=== PATIENT | female | born 1930 | race Caucasian/White ===

== ENCOUNTER → 2018-10-21 | Outpatient (CLI) | payer MEDICARE, OTHER ==
--- NOTE | 2018-10-21 12:08 | RADIOLOGY REPORT (SQ) ---
EXAM DESCRIPTION: VENOUS UNILATERAL LOWER COMPLETED DATE/TIME: 10/21/2018 11:59 am REASON FOR STUDY: LLE PAIN M79.605 PAIN IN LEFT LEG COMPARISON: None. TECHNIQUE: Dynamic and static singh scale and color images acquired of the left leg venous system. Se lected spectral images acquired with additional compression and augmentation maneuvers. The contralat eral common femoral vein and saphenofemoral junction were also imaged. Images stored on PACS. LIMITATIONS: None. FINDINGS: COMMON FEMORAL: Normal phasicity, compression and augmentation. No visualized echogenic ma terial on singh scale. No defects on color images. FEMORAL: Normal compression and augmentation. No visualized echogenic material on singh scale. No defe cts on color images. POPLITEAL: Normal compression, augmentation. No visualized echogenic material on singh scale. No defec ts on color images. CALF VESSELS: Normal compression, augmentation. No visualized echogenic material on singh scale. No de fects on color images. GSV and SSV: Normal compression, augmentation. No visualized echogenic material on singh scale. No def ects on color images. ANY DEEP VENOUS INSUFFICIENCY: Not evaluated. ANY EVIDENCE OF POPLITEAL CYST: No. OTHER: No other significant finding. CONTRALATERAL COMMON FEMORAL VEIN AND SAPHENOFEMORAL JUNCTION: Normal phasicity, compression and augmentation. No visualized echogenic material on singh scale. No de fects on color images. IMPRESSION: NO EVIDENCE DVT OR SVT IN THE LEFT LEG. TECHNICAL DOCUMENTATION: JOB ID: [id number] [employer]- All Rights Reserved Reading location - IP/workstation name: [email or web address]
== END ==
LOC: SP 09:14
PROVIDERS: ATTEND Family Medicine
DX: M79.605 Pain in left leg (principal)
CPT/HCPCS: 93971

== ENCOUNTER 2018-11-21 03:44 | Inpatient (IN) | payer MEDICARE ==
[2018-11-21] MEDS ORDERED: NORMAL SALINE 1000 ML 1,000 ML IV ONE ×2 (03:51→05:00)
--- NOTE | 2018-11-21 04:04 | ER Document Report ---
ED General - General Stated Complaint: FEVER Time Seen by Provider: 11/21/18 03:50 Primary Care Provider: AUGUSTIN JOHNS MD [Primary Care Provider] - Follow up as needed TRAVEL OUTSIDE OF THE [place] IN LAST 30 DAYS: No - HPI Notes: Patient is a 88-year-old female that presents to the emergency department for chief complaint of fever. Patient reports Thursday afternoon she started to feel mild chills. When she woke up tonight she states the chills were worse. She had a fever of 101.3 by EMS. Patient states she has not felt sick recently. She reports some intermittent burning with urination over the last few days. She denies any urinary frequency, cough and congestion. Patient states she does have a history of asthma and use her albuterol inhaler once on Thursday which gave her relief of her wheezing. She denies any nausea, vomiting, abdominal pain and chest pain. Past Medical History: Asthma, diabetes, hypertension Past Surgical History: Reviewed in chart Social History: Denies drugs alcohol and tobacco Family History: Reviewed and noncontributory for presenting illness Allergies: Reviewed, see documented allergy list. REVIEW OF SYSTEMS: CONSTITUTIONAL : fever chills No diaphoresis No recent illness EENT: No vision changes No congestion No sore throat CARDIOVASCULAR: No chest pain No palpitations RESPIRATORY: No shortness of breath No cough No difficulty breathing GASTROINTESTINAL: No abdominal pain No nausea No vomiting No diarrhea GENITOURINARY: dysuria No hematuria No difficulty urinating MUSCULOSKELETAL: No back pain No leg pain No arm pain SKIN: No rashes No lesions LYMPHATIC: No swollen, enlarged glands. NEUROLOGICAL: No lightheadedness No headache No weakness No paresthesias PSYCHIATRIC: No anxiety No depression PHYSICAL EXAMINATION: Vital signs reviewed, nursing noted reviewed. GENERAL: Well-appearing, well-nourished and in no acute distress. HEAD: Atraumatic, normocephalic. EYES: Eyes appear normal, extraocular movements intact, sclera anicteric, conjunctiva are normal. ENT: nares patent, oropharynx clear without exudates. Dry mucous membranes. NECK: Normal range of motion, supple without lymphadenopathy LUNGS: Breath sounds have wheezing to auscultation bilaterally and equal. No rales or rhonchi. HEART: Tachycardic rate and regular rhythm without murmurs ABDOMEN: Soft, nontender, normoactive bowel sounds. No rebound, guarding, or rigidity. No masses appreciated. EXTREMITIES: Nontender, good range of motion, trace pretibial edema NEUROLOGICAL: No focal neurological deficits. Moves all extremities spontaneously Motor and sensory grossly intact on exam. PSYCH: Normal mood, normal affect. SKIN: Warm, Dry, normal turgor, no rashes or lesions noted on exposed skin - Related Data Allergies/Adverse Reactions: erythromycin base [Erythromycin Base] Allergy (Verified 11/21/18 04:13) morphine [Morphine] Allergy (Verified 11/21/18 04:13) nitrofurantoin macrocrystalline [From Macrodantin] Allergy (Verified 11/21/18 04:13) phenytoin sodium [From Dilantin] Allergy (Verified 11/21/18 04:13) phenytoin sodium extended [From Dilantin] Allergy (Verified 11/21/18 04:13) Sulfa (Sulfonamide Antibiotics) Allergy (Verified 11/21/18 04:13) niacin [Niacin] Adverse Reaction (Verified 11/21/18 04:13) Past Medical History - Social History Smoking Status: Never Smoker Family History: Reviewed & Not Pertinent - Past Medical History Cardiac Medical History: Reports: Hx Hypercholesterolemia, Hx Hypertension - MEDS Denies: Hx Heart Attack Pulmonary Medical History: Reports: Hx Asthma - SYMBICORT,SINGULAIR Neurological Medical History: Denies: Hx Cerebrovascular Accident, Hx Seizures Endocrine Medical History: Reports: Hx Diabetes Mellitus Type 2 GI Medical History: Denies: Hx Hepatitis, Hx Hiatal Hernia, Hx Ulcer Musculoskeletal Medical History: Reports Hx Arthritis Infectious Medical History: Denies: Hx Hepatitis Past Surgical History: Reports: Hx Cholecystectomy, Hx Hysterectomy. Denies: Hx Mastectomy, Hx Open Heart Surgery, Hx Pacemaker - Immunizations Hx Diphtheria, Pertussis, Tetanus Vaccination: - unk Physical Exam - Vital signs Vitals: Temp Pulse Resp BP Pulse Ox 98.7 F 126 H 19 159/59 H 97 11/21/18 03:45 11/21/18 03:45 11/21/18 03:45 11/21/18 03:45 11/21/18 03:45 Course - Re-evaluation Re-evalutation: 11/21/18 04:03 Vitals reviewed. Nursing notes reviewed. Patient received 250 mL's normal saline bolus and 650 mg of Tylenol by EMS prior to arrival. She was given another liter bolus of IV fluids in the ED for her persistent tachycardia and fever and concern for sepsis. Patient is otherwise well-appearing, not diaphoretic, alert and conversational. She states she does feel improved since receiving Tylenol by EMS. 11/21/18 05:16 Patient reevaluated and still appears alert and in no acute distress. Her heart rate has minimally improved with IV fluids. She will be ordered a second liter of normal saline. Patient has an elevated lactate of 5.3 consistent with severe sepsis. She has an acute urinary tract infection that was treated with Rocephin. Patient will be admitted to the [facility] for her severe sepsis. Case discussed with Dr. Blackman who accepts admission. Patient in agreement with plan of care. Laboratory 11/21/18 11/21/18 11/21/18 04:00 04:00 04:00 WBC 9.9 RBC 3.74 Hgb 11.6 L Hct 33.6 L MCV 90 MCH 31.1 MCHC 34.6 RDW 12.7 Plt Count 231 Seg Neutrophils % 93.3 H Lymphocytes % 5.8 L Monocytes % 0.5 L Eosinophils % 0.2 Basophils % 0.2 Absolute Neutrophils 9.3 H Absolute Lymphocytes 0.6 Absolute Monocytes 0.1 Absolute Eosinophils 0.0 Absolute Basophils 0.0 PT 13.6 INR 0.99 VBG pH VBG pCO2 VBG HCO3 VBG Base Excess Sodium 138.4 Potassium 3.6 Chloride 105 Carbon Dioxide 19 L Anion Gap 14 BUN 16 Creatinine 0.53 Est GFR ( Amer) > 60 Est GFR (Non-Af Amer) > 60 Glucose 138 H Lactic Acid Calcium 9.0 Total Bilirubin 0.4 Direct Bilirubin 0.2 Neonat Total Bilirubin Not Reportable Neonat Direct Bilirubin Not Reportable Neonat Indirect Bili Not Reportable AST 20 ALT 17 Alkaline Phosphatase 50 Total Protein 5.7 L Albumin 3.5 Urine Color Urine Appearance Urine pH Ur Specific [place] Urine Protein Urine Glucose (UA) Urine Ketones Urine Blood Urine Nitrite Urine Bilirubin Urine Urobilinogen Ur Leukocyte Esterase Urine WBC (Auto) Urine RBC (Auto) Urine Bacteria (Auto) Urine WBC Clumps Urine Ascorbic Acid 11/21/18 11/21/18 11/21/18 04:00 04:00 04:41 WBC RBC Hgb Hct MCV MCH MCHC RDW Plt Count Seg Neutrophils % Lymphocytes % Monocytes % Eosinophils % Basophils % Absolute Neutrophils Absolute Lymphocytes Absolute Monocytes Absolute Eosinophils Absolute Basophils PT INR VBG pH 7.43 H VBG pCO2 36.6 VBG HCO3 23.9 VBG Base Excess -0.1 Sodium Potassium Chloride Carbon Dioxide Anion Gap BUN Creatinine Est GFR ( Amer) Est GFR (Non-Af Amer) Glucose Lactic Acid 5.3 H Calcium Total Bilirubin Direct Bilirubin Neonat Total Bilirubin Neonat Direct Bilirubin Neonat Indirect Bili AST ALT Alkaline Phosphatase Total Protein Albumin Urine Color YELLOW Urine Appearance CLOUDY Urine pH 5.0 Ur Specific [place] 1.014 Urine Protein NEGATIVE Urine Glucose (UA) NEGATIVE Urine Ketones 20 H Urine Blood NEGATIVE Urine Nitrite POSITIVE H Urine Bilirubin NEGATIVE Urine Urobilinogen NEGATIVE Ur Leukocyte Esterase LARGE H Urine WBC (Auto) >182 Urine RBC (Auto) 14 Urine Bacteria (Auto) 3+ Urine WBC Clumps MANY Urine Ascorbic Acid NEGATIVE - Vital Signs Vital signs: Temp Pulse Resp BP Pulse Ox 98 F 126 H 21 H 141/62 H 97 11/21/18 04:31 11/21/18 03:45 11/21/18 04:31 11/21/18 04:31 11/21/18 04:31 - Laboratory Result Diagrams: 11/21/18 04:00 11/21/18 04:00 Laboratory results interpreted by me: 11/21/18 11/21/18 11/21/18 04:00 04:00 04:00 Hgb 11.6 L Hct 33.6 L Seg Neutrophils % 93.3 H Lymphocytes % 5.8 L Monocytes % 0.5 L Absolute Neutrophils 9.3 H VBG pH Carbon Dioxide 19 L Glucose 138 H Lactic Acid 5.3 H Total Protein 5.7 L Urine Ketones Urine Nitrite Ur Leukocyte Esterase 11/21/18 11/21/18 04:00 04:41 Hgb Hct Seg Neutrophils % Lymphocytes % Monocytes % Absolute Neutrophils VBG pH 7.43 H Carbon Dioxide Glucose Lactic Acid Total Protein Urine Ketones 20 H Urine Nitrite POSITIVE H Ur Leukocyte Esterase LARGE H - EKG Interpretation by Me Additional EKG results interpreted by me: 11/21/18 04:19 Interpreted by myself [id number]: Sinus tachycardia with first-degree AV block, rate 111, [place] 224, no STEMI, no ectopy, poor R wave progression Critical Care Note - Critical Care Note Comments: Critical care time 35 exclusive from separate billable procedures for a patient requiring complex medical decision making, and high potential for clinical deterioration. Time spent obtaining history from patient or surrogate, discussions with consultants, development of treatment plan with patient or surrogate, evaluation of patient's response to treatment, examination of patient, ordering and performing treatments and interventions, ordering and review of laboratory studies, re-evaluation of patient's condition, ordering and review of radiographic studies and review of old charts Discharge - Discharge Clinical Impression: Severe sepsis, Acute UTI Condition: Stable Disposition: ADMITTED INPATIENT Admitting Provider: [facility] Admitted: [facility]
[2018-11-21 04:19] LABS: ABSOLUTE LYMPHOCYTES (AUTO) 0.6 10^3/uL (0.5-4.7); ABSOLUTE MONOCYTES (AUTO) 0.1 10^3/uL (0.1-1.4); ABSOLUTE NEUT (AUTO) 9.3 10^3/uL (1.7-8.2); BASOPHILS % (AUTO) 0.2 % (0-2); EOSINOPHILS % (AUTO) 0.2 % (0-6); HEMATOCRIT 33.6 % (36.0-47.0); HEMOGLOBIN 11.6 g/dL (12.0-15.5); LYMPHOCYTES % (AUTO) 5.8 % (13-45); MEAN CORPUSCULAR HEMOGLOBIN 31.1 pg (27.0-33.4); MEAN CORPUSCULAR HGB CONC 34.6 g/dL (32.0-36.0); MEAN CORPUSCULAR VOLUME 90 fl (80-97); MONOCYTES % (AUTO) 0.5 % (3-13); PLATELET COUNT 231 10^3/uL (150-450); RED BLOOD COUNT 3.74 10^6/uL (3.72-5.28); RED CELL DISTRIBUTION WIDTH 12.7 % (11.5-14.0); SEGMENTED NEUTROPHILS % (AUTO) 93.3 % (42-78); TOTAL CELLS COUNTED % (AUTO) 100 %; WHITE BLOOD COUNT 9.9 10^3/uL (4.0-10.5)
[2018-11-21 04:22] LABS: VENOUS BLOOD BASE EXCESS -0.1 mmol/L; VENOUS BLOOD HCO3 23.9 mmol/L (20-32); VENOUS BLOOD PCO2 36.6 mmHg (35-63); VENOUS BLOOD PH 7.43 (7.30-7.42)
[2018-11-21 04:25] LABS: INTERNATIONAL RATION (INR) 0.99; PROTHROMBIN TIME 13.6 SEC (11.4-15.4)
[2018-11-21] MEDS ORDERED: CEFTRIAXONE INJ 1000 MG VIAL IV ONE (04:30)
[2018-11-21 04:37] LABS: ALANINE AMINOTRANSFERASE 17 U/L (9-52); ALBUMIN 3.5 g/dL (3.5-5.0); ALKALINE PHOSPHATASE 50 U/L (38-126); ANION GAP 14 (5-19); ASPARTATE AMINO TRANSFERASE 20 U/L (14-36); BILIRUBIN,DIRECT 0.2 mg/dL (0.0-0.4); BILIRUBIN,TOTAL 0.4 mg/dL (0.2-1.3); BLOOD UREA NITROGEN 16 mg/dL (7-20); CARBON DIOXIDE 19 mmol/L (22-30); CHLORIDE 105 mmol/L (98-107); GLUCOSE 138 mg/dL (75-110); POTASSIUM 3.6 mmol/L (3.6-5.0); SODIUM 138.4 mmol/L (137-145); TOTAL PROTEIN 5.7 g/dL (6.3-8.2)
[2018-11-21 05:10] LABS: APPEARANCE,URINE CLOUDY; BILIRUBIN,URINE NEGATIVE (NEGATIVE); COLOR,URINE YELLOW; GLUCOSE, URINE NEGATIVE (NEGATIVE); KETONES,URINE 20 mg/dL (NEGATIVE); LEUKOCYTE ESTERASE,URINE LARGE (NEGATIVE); NITRITE,URINE POSITIVE (NEGATIVE); PROTEIN,URINE NEGATIVE (NEGATIVE); URINE SPECIFIC GRAVITY 1.014; UROBILINOGEN,URINE NEGATIVE mg/dL (<2.0)
--- NOTE | 2018-11-21 05:29 | RADIOLOGY REPORT (SQ) ---
Chest single view on 11/21/2018 at 4:29 AM CLINICAL INDICATION: Fever COMPARISON: 04/05/2016 FINDINGS: There is mild left basilar atelectasis or scarring. The lungs are otherwise clear. Cardiac, hilar and mediastinal contours are within normal limits. Pulmonary vascularity is within normal limits. IMPRESSION: No acute disease.
[2018-11-21] MEDS ORDERED: TRAMADOL HCL 50 MG TABLET PO PRN (07:34)
[2018-11-21] MEDS ORDERED: GLUCAGON,HUMAN RECOMB 1 MG INJ IM PRN (07:37)
[2018-11-21] MEDS ORDERED: DEXTROSE 50%-WATER 25 GM/50 ML DISP.SYRIN IV PRN ×2 (07:37)
[2018-11-21] MEDS ORDERED: DEXTROSE 40% GEL 15 GM TUBE PO PRN ×2 (07:37)
--- NOTE | 2018-11-21 09:34 | EKG REPORT ---
SEVERITY:- ABNORMAL ECG - SINUS TACHYCARDIA FIRST DEGREE AV BLOCK PROBABLE INFERIOR INFARCT, AGE INDETERMINATE BORDERLINE R WAVE PROGRESSION, ANTERIOR LEADS : Confirmed by: Yayo Tristan MD 21-Nov-2018 09:33:55
[2018-11-21] MEDS: NORMAL SALINE 1000 ML 1,000 ML IV PRN (10:45)
[2018-11-21] MEDS: INSULIN LISPRO 100 UNIT/ML 3 ML VIAL SUBCUT SCH ×5 (12:07→22:05)
--- NOTE | 2018-11-21 12:15 | PDOC H&P ---
History of Present Illness Admission Date/PCP: 11/21/18 05:27 AUGUSTIN JOHNS MD History of Present Illness: DELFIN GUNDERSON is a 88 year old female, she came to the emergency room for evaluation of fever and chills associated with urinary symptoms, dysuria and urgency. She was evaluated in the ER, she was found to have lactic acidosis grossly abnormal urinalysis that suggest UTI, the emergency room physician felt that patient needed to be hospitalized because she met sepsis criteria. She has lactic acidosis there is no evidence of endorgan failure, there is no leukocytosis there is no encephalopathy, the blood pressure is normal, she does not definitely meet the criteria for sepsis but she has UTI, history of type 2 diabetes mellitus Past Medical History Cardiac Medical History: Reports: Hyperlipidema, Hypertension - MEDS Pulmonary Medical History: Reports: Asthma - SYMBICORT,SINGULAIR Endocrine Medical History: Reports: Diabetes Mellitus Type 2 Musculoskeltal Medical History: Reports: Arthritis Past Surgical History Past Surgical History: Reports: Cholecystectomy, Hysterectomy Social History Smoking Status: Never Smoker Frequency of Alcohol Use: None Hx Recreational Drug Use: No Drugs: None Hx Prescription Drug Abuse: No Family History Family History: Reviewed & Not Pertinent Parental Family History Reviewed: Yes Children Family History Reviewed: Yes Sibling(s) Family History Reviewed.: Yes Medication/Allergy Home Medications: Budesonide/Formoterol Fumarate [Symbicort Hfa 160-4.5 Mcg Inhaler 6 gm] 2 puff IH DAILY 04/17/15 Cholecalciferol (Vitamin D3) [Vitamin D] 1,000 unit PO DAILY 04/17/15 Glipizide [Glocotrol 5 Mg Tablet] 5 mg PO BID 04/17/15 Lisinopril 40 mg PO DAILY 04/17/15 Losartan Potassium 100 mg PO DAILY 04/17/15 Metformin HCl [Glucophage] 1,000 mg PO BID 04/17/15 Montelukast Sodium [Singulair 10 mg Tablet] 10 mg PO QHS 04/17/15 Callahan-3/Dha/Epa/Fish Oil [Fish Oil 1,000 mg Softgel] 1 each PO DAILY 04/17/15 Terazosin HCl 1 mg PO DAILY 04/17/15 Torsemide [Demadex 10 mg Tablet] 10 mg PO DAILY 04/17/15 Tramadol HCl 50 mg PO BID PRN 04/17/15 Verapamil HCl [Verapamil ER] 180 mg PO BID 04/17/15 Cyanocobalamin (Vitamin B-12) [Vitamin B12] 2,500 mcg PO DAILY 11/21/18 Magnesium Oxide [Magnesium] 400 mg PO DAILY 11/21/18 Metoprolol Succinate [Toprol Xl] 25 mg PO DAILY 11/21/18 Allergies/Adverse Reactions: erythromycin base [Erythromycin Base] Allergy (Verified 11/21/18 04:13) morphine [Morphine] Allergy (Verified 11/21/18 04:13) nitrofurantoin macrocrystalline [From Macrodantin] Allergy (Verified 11/21/18 04:13) phenytoin sodium [From Dilantin] Allergy (Verified 11/21/18 04:13) phenytoin sodium extended [From Dilantin] Allergy (Verified 11/21/18 04:13) Sulfa (Sulfonamide Antibiotics) Allergy (Verified 11/21/18 04:13) niacin [Niacin] Adverse Reaction (Verified 11/21/18 04:13) Review of Systems Constitutional: PRESENT: chills, fever(s) Eyes: ABSENT: visual disturbances Ears: ABSENT: hearing changes Cardiovascular: ABSENT: chest pain, dyspnea on exertion, edema, orthropnea, palpitations Respiratory: ABSENT: cough, hemoptysis Gastrointestinal: ABSENT: abdominal pain, constipation, diarrhea, hematemesis, hematochezia, nausea, vomiting Genitourinary: PRESENT: dysuria. ABSENT: hematuria Musculoskeletal: ABSENT: joint swelling Integumentary: ABSENT: rash, wounds Neurological: ABSENT: abnormal gait, abnormal speech, confusion, dizziness, focal weakness, syncope Psychiatric: ABSENT: anxiety, depression, homidical ideation, suicidal ideation Endocrine: ABSENT: cold intolerance, heat intolerance, menstrual abnormalities, polydipsia, polyuria Hematologic/Lymphatic: ABSENT: easy bleeding, easy bruising, lymphadenopathy Physical Exam Vital Signs: Temp Pulse Resp BP Pulse Ox 97.8 F 113 H 18 114/45 L 97 11/21/18 11:13 11/21/18 11:13 11/21/18 11:13 11/21/18 11:13 11/21/18 11:13 Intake & Output 11/20/18 11/21/18 11/22/18 06:59 06:59 06:59 Intake Total 1999 Balance 1999 Weight 67.1 kg General appearance: PRESENT: no acute distress, well-developed, well-nourished Head exam: PRESENT: atraumatic, normocephalic Eye exam: PRESENT: conjunctiva pink, EOMI, PERRLA Ear exam: PRESENT: normal external ear exam Mouth exam: PRESENT: moist, tongue midline Neck exam: PRESENT: full ROM Respiratory exam: PRESENT: clear to auscultation palmer Cardiovascular exam: PRESENT: RRR, +S1, +S2 Pulses: PRESENT: normal dorsalis pedis pul, +2 pedal pulses bilateral Vascular exam: PRESENT: normal capillary refill GI/Abdominal exam: PRESENT: normal bowel sounds, soft Rectal exam: PRESENT: deferred Neurological exam: PRESENT: alert, awake, oriented to person, oriented to place, oriented to time, oriented to situation, CN II-XII grossly intact Psychiatric exam: PRESENT: appropriate affect, normal mood Skin exam: PRESENT: dry, intact, warm Results Laboratory Results: 11/21/18 04:00 11/21/18 04:00 11/21/18 11/21/18 11/21/18 04:00 04:00 04:00 WBC 9.9 RBC 3.74 Hgb 11.6 L Hct 33.6 L MCV 90 MCH 31.1 MCHC 34.6 RDW 12.7 Plt Count 231 Seg Neutrophils % 93.3 H Lymphocytes % 5.8 L Monocytes % 0.5 L Eosinophils % 0.2 Basophils % 0.2 Absolute Neutrophils 9.3 H Absolute Lymphocytes 0.6 Absolute Monocytes 0.1 Absolute Eosinophils 0.0 Absolute Basophils 0.0 VBG pH VBG pCO2 VBG HCO3 VBG Base Excess Sodium 138.4 Potassium 3.6 Chloride 105 Carbon Dioxide 19 L Anion Gap 14 BUN 16 Creatinine 0.53 Est GFR ( Amer) > 60 Est GFR (Non-Af Amer) > 60 Glucose 138 H Lactic Acid 5.3 H Calcium 9.0 Total Bilirubin 0.4 AST 20 ALT 17 Alkaline Phosphatase 50 Total Protein 5.7 L Albumin 3.5 Urine Color Urine Appearance Urine pH Ur Specific [place] Urine Protein Urine Glucose (UA) Urine Ketones Urine Blood Urine Nitrite Ur Leukocyte Esterase Urine WBC (Auto) Urine RBC (Auto) 11/21/18 11/21/18 11/21/18 04:00 04:41 08:00 WBC RBC Hgb Hct MCV MCH MCHC RDW Plt Count Seg Neutrophils % Lymphocytes % Monocytes % Eosinophils % Basophils % Absolute Neutrophils Absolute Lymphocytes Absolute Monocytes Absolute Eosinophils Absolute Basophils VBG pH 7.43 H VBG pCO2 36.6 VBG HCO3 23.9 VBG Base Excess -0.1 Sodium Potassium Chloride Carbon Dioxide Anion Gap BUN Creatinine Est GFR ( Amer) Est GFR (Non-Af Amer) Glucose Lactic Acid 3.4 H Calcium Total Bilirubin AST ALT Alkaline Phosphatase Total Protein Albumin Urine Color YELLOW Urine Appearance CLOUDY Urine pH 5.0 Ur Specific [place] 1.014 Urine Protein NEGATIVE Urine Glucose (UA) NEGATIVE Urine Ketones 20 H Urine Blood NEGATIVE Urine Nitrite POSITIVE H Ur Leukocyte Esterase LARGE H Urine WBC (Auto) >182 Urine RBC (Auto) 14 Impressions: Chest X-Ray 11/21/18 03:52 IMPRESSION: No acute disease. Assessment & Plan - Diagnosis (1) Urinary tract infection Qualifiers: Urinary tract infection type: site unspecified Hematuria presence: without hematuria Qualified Code(s): N39.0 - Urinary tract infection, site not specified Is this a current diagnosis for this admission?: Yes Plan: Patient with uncomplicated UTI start antibiotic IV ceftriaxone (2) Lactic acidosis Is this a current diagnosis for this admission?: Yes Plan: She has lactic acidosis, the apparent etiology is not clear
[2018-11-21] MEDS: METOPROLOL SUCCINATE 25 MG TAB.SR.24H PO SCH (12:55)
[2018-11-21] MEDS: MONTELUKAST SODIUM 10 MG TABLET PO SCH ×2 (14:42→22:05)
[2018-11-21] MEDS: GLIPIZIDE 5 MG TABLET PO SCH (17:11)
[2018-11-21] MEDS: VERAPAMIL HCL 180 MG TABLET.SA PO SCH ×2 (17:12→22:05)
[2018-11-21] MEDS: METFORMIN HCL 500 MG TABLET PO SCH (22:06)
[2018-11-22] MEDS: NORMAL SALINE 1000 ML 1,000 ML IV PRN (00:02)
[2018-11-22] MEDS: INSULIN LISPRO 100 UNIT/ML 3 ML VIAL SUBCUT SCH ×4 (09:09→21:54)
[2018-11-22] MEDS: VERAPAMIL HCL 180 MG TABLET.SA PO SCH ×2 (09:52→21:53)
[2018-11-22] MEDS: LOSARTAN POTASSIUM 50 MG TABLET PO SCH (09:52)
[2018-11-22] MEDS: METFORMIN HCL 500 MG TABLET PO SCH ×2 (09:52→18:34)
[2018-11-22] MEDS: CYANOCOBALAMIN (VITAMIN B-12) 1,000 MCG TABLET PO SCH (09:53)
[2018-11-22] MEDS: METOPROLOL SUCCINATE 25 MG TAB.SR.24H PO SCH (09:53)
[2018-11-22] MEDS: GLIPIZIDE 5 MG TABLET PO SCH ×2 (09:53→18:34)
[2018-11-22] MEDS: MAGNESIUM OXIDE 400 MG TABLET PO SCH (09:53)
[2018-11-22] MEDS: CHOLECALCIFEROL (D3) 1,000 UNIT TABLET PO SCH (09:53)
[2018-11-22] MEDS: OMEGA-3 ACID ETHYL ESTERS 1 GM CAPSULE PO SCH (09:54)
[2018-11-22] MEDS: CEFTRIAXONE SODIUM 1,000 MG in DEXTROSE 5%-WATER 50 ML IV SCH (09:54)
[2018-11-22] MEDS: FLUTICASONE/VILANTEROL 200-25 MCG/DOSE IH SCH (09:54)
[2018-11-22] MEDS: DOXAZOSIN MESYLATE 1 MG TABLET PO SCH (09:55)
[2018-11-22] MEDS ORDERED: CEFTRIAXONE 1 GM/D5W RTU 1 GM/50 ML RTUPB IV SCH (10:00)
--- NOTE | 2018-11-22 12:51 | PDOC PROGRESS REPORT ---
Subjective Progress Note for:: 11/22/18 Subjective:: Patient is currently doing well Patient was admitted because of the patient not feeling well and diagnosed with the UTI Patient was put on Rocephin Patient's lactic acid is currently 0.7 Patient's denied any chest pain to than any shortness of the breath Reason For Visit: URINARY TRACT INFECTION Physical Exam Vital Signs: Temp Pulse Resp BP Pulse Ox 98.4 F 86 16 127/49 H 94 11/22/18 07:53 11/22/18 07:53 11/22/18 07:53 11/22/18 07:53 11/22/18 07:53 Intake & Output 11/21/18 11/22/18 11/23/18 06:59 06:59 06:59 Intake Total 1999 2257 50 Output Total 450 Balance 1999 1807 50 Weight 67.1 kg 72.6 kg General appearance: PRESENT: no acute distress, well-developed, well-nourished Head exam: PRESENT: atraumatic, normocephalic Eye exam: PRESENT: conjunctiva pink, EOMI, PERRLA. ABSENT: scleral icterus Ear exam: PRESENT: normal external ear exam Mouth exam: PRESENT: moist, tongue midline Neck exam: PRESENT: full ROM. ABSENT: carotid bruit, JVD, lymphadenopathy, thyromegaly Respiratory exam: PRESENT: clear to auscultation palmer Cardiovascular exam: PRESENT: RRR. ABSENT: diastolic murmur, rubs, systolic murmur Vascular exam: PRESENT: normal capillary refill GI/Abdominal exam: PRESENT: normal bowel sounds, soft. ABSENT: distended, guarding, mass, organolmegaly, rebound, tenderness Rectal exam: PRESENT: deferred Neurological exam: PRESENT: alert, awake, oriented to person, oriented to place, oriented to time, oriented to situation, CN II-XII grossly intact. ABSENT: motor sensory deficit Psychiatric exam: PRESENT: appropriate affect, normal mood. ABSENT: homicidal ideation, suicidal ideation Skin exam: PRESENT: dry, intact, warm. ABSENT: cyanosis, rash Results Laboratory Results: 11/21/18 04:00 11/21/18 04:00 11/22/18 08:56 Lactic Acid 0.7 Impressions: Chest X-Ray 11/21/18 03:52 IMPRESSION: No acute disease. Assessment & Plan - Diagnosis (1) Acute UTI Is this a current diagnosis for this admission?: Yes Plan: Continues to IV antibiotics will wait for the culture and sensitivity (2) Lactic acidosis Is this a current diagnosis for this admission?: Yes Plan: Currently all resolved - Time Time Spent with patient: 15-24 minutes Medications reviewed and adjusted accordingly: Yes Anticipated discharge: Home Within: within 24 hours - Plan Summary Plan Summary: Will repeat the CBC Chem-7 Get the physical therapy evaluations
[2018-11-22] MEDS: MONTELUKAST SODIUM 10 MG TABLET PO SCH (21:53)
[2018-11-23 05:47] LABS: ABSOLUTE EOSINOPHILS # (AUTO) 0.1 10^3/uL (0.0-0.6); ABSOLUTE LYMPHOCYTES (AUTO) 1.6 10^3/uL (0.5-4.7); ABSOLUTE NEUT (AUTO) 8.8 10^3/uL (1.7-8.2); BASOPHILS % (AUTO) 0.4 % (0-2); EOSINOPHILS % (AUTO) 1.2 % (0-6); HEMATOCRIT 28.8 % (36.0-47.0); HEMOGLOBIN 9.9 g/dL (12.0-15.5); LYMPHOCYTES % (AUTO) 14.1 % (13-45); MEAN CORPUSCULAR HEMOGLOBIN 31.1 pg (27.0-33.4); MEAN CORPUSCULAR HGB CONC 34.5 g/dL (32.0-36.0); MEAN CORPUSCULAR VOLUME 90 fl (80-97); MONOCYTES % (AUTO) 8.7 % (3-13); PLATELET COUNT 183 10^3/uL (150-450); RED CELL DISTRIBUTION WIDTH 12.5 % (11.5-14.0); SEGMENTED NEUTROPHILS % (AUTO) 75.6 % (42-78); TOTAL CELLS COUNTED % (AUTO) 100 %; WHITE BLOOD COUNT 11.6 10^3/uL (4.0-10.5)
[2018-11-23 06:11] LABS: BLOOD UREA NITROGEN 11 mg/dL (7-20); CALCIUM 8.2 mg/dL (8.4-10.2); GLUCOSE 156 mg/dL (75-110)
[2018-11-23 06:12] LABS: ANION GAP 9 (5-19); CARBON DIOXIDE 23 mmol/L (22-30); CHLORIDE 106 mmol/L (98-107); POTASSIUM 3.7 mmol/L (3.6-5.0); SODIUM 137.7 mmol/L (137-145)
[2018-11-23] MEDS: INSULIN LISPRO 100 UNIT/ML 3 ML VIAL SUBCUT SCH ×4 (07:59→23:06)
--- NOTE | 2018-11-23 09:11 | PDOC PROGRESS REPORT ---
Subjective Progress Note for:: 11/23/18 Subjective:: Patient is currently doing well Patient was admitted because of the patient not feeling well and diagnosed with the UTI Patient was put on Rocephin Patient's lactic acid is currently 0.7 Patient's denied any chest pain to than any shortness of the breath Reason For Visit: URINARY TRACT INFECTION Physical Exam Vital Signs: Temp Pulse Resp BP Pulse Ox 97.8 F 84 14 140/57 H 94 11/23/18 07:47 11/23/18 07:47 11/23/18 07:47 11/23/18 07:47 11/23/18 07:47 Intake & Output 11/22/18 11/23/18 11/24/18 06:59 06:59 06:59 Intake Total 2257 1725 Output Total 450 1400 Balance 1807 325 Weight 72.6 kg 72.5 kg General appearance: PRESENT: no acute distress, well-developed, well-nourished Head exam: PRESENT: atraumatic, normocephalic Eye exam: PRESENT: conjunctiva pink, EOMI, PERRLA. ABSENT: scleral icterus Ear exam: PRESENT: normal external ear exam Mouth exam: PRESENT: moist, tongue midline Neck exam: PRESENT: full ROM. ABSENT: carotid bruit, JVD, lymphadenopathy, thyromegaly Cardiovascular exam: PRESENT: RRR. ABSENT: diastolic murmur, rubs, systolic m urmur Pulses: PRESENT: normal dorsalis pedis pul, +2 pedal pulses bilateral Vascular exam: PRESENT: normal capillary refill GI/Abdominal exam: PRESENT: normal bowel sounds, soft. ABSENT: distended, guarding, mass, organolmegaly, rebound, tenderness Rectal exam: PRESENT: deferred Neurological exam: PRESENT: alert, awake, oriented to person, oriented to place, oriented to time, oriented to situation, CN II-XII grossly intact. ABSENT: motor sensory deficit Psychiatric exam: PRESENT: appropriate affect, normal mood. ABSENT: homicidal ideation, suicidal ideation Skin exam: PRESENT: dry, intact, warm. ABSENT: cyanosis, rash Results Laboratory Results: 11/23/18 05:07 11/23/18 05:07 11/22/18 11/23/18 11/23/18 08:56 05:07 05:07 WBC 11.6 H RBC 3.20 L Hgb 9.9 L Hct 28.8 L MCV 90 MCH 31.1 MCHC 34.5 RDW 12.5 Plt Count 183 Seg Neutrophils % 75.6 Lymphocytes % 14.1 Monocytes % 8.7 Eosinophils % 1.2 Basophils % 0.4 Absolute Neutrophils 8.8 H Absolute Lymphocytes 1.6 Absolute Monocytes 1.0 Absolute Eosinophils 0.1 Absolute Basophils 0.0 Sodium 137.7 Potassium 3.7 Chloride 106 Carbon Dioxide 23 Anion Gap 9 BUN 11 Creatinine 0.51 L Est GFR ( Amer) > 60 Est GFR (Non-Af Amer) > 60 Glucose 156 H Lactic Acid 0.7 Calcium 8.2 L 11/21/18 04:41 Catheterized Urine Urine Culture - Final Escherichia Coli Impressions: Chest X-Ray 11/21/18 03:52 IMPRESSION: No acute disease. Assessment & Plan - Diagnosis (1) Acute UTI Is this a current diagnosis for this admission?: Yes Plan: Continues to IV antibiotics will wait for the culture and sensitivity (2) Lactic acidosis Is this a current diagnosis for this admission?: Yes Plan: Currently all resolved (3) Hypertension Qualifiers: Hypertension type: essential hypertension Qualified Code(s): I10 - Essential (primary) hypertension Is this a current diagnosis for this admission?: Yes (4) Type 2 diabetes mellitus Qualifiers: Diabetes mellitus care home insulin use: without exterminator termite use Is this a current diagnosis for this admission?: Yes - Time Time Spent with patient: 15-24 minutes Medications reviewed and adjusted accordingly: Yes Anticipated discharge: Home Within: within 24 hours - Plan Summary Plan Summary: On medication
[2018-11-23] MEDS: CHOLECALCIFEROL (D3) 1,000 UNIT TABLET PO SCH (09:28)
[2018-11-23] MEDS: OMEGA-3 ACID ETHYL ESTERS 1 GM CAPSULE PO SCH (09:28)
[2018-11-23] MEDS: LOSARTAN POTASSIUM 50 MG TABLET PO SCH (09:28)
[2018-11-23] MEDS: METOPROLOL SUCCINATE 25 MG TAB.SR.24H PO SCH (09:28)
[2018-11-23] MEDS: GLIPIZIDE 5 MG TABLET PO SCH ×2 (09:28→17:35)
[2018-11-23] MEDS: METFORMIN HCL 500 MG TABLET PO SCH ×2 (09:29→17:35)
[2018-11-23] MEDS: CYANOCOBALAMIN (VITAMIN B-12) 1,000 MCG TABLET PO SCH (09:29)
[2018-11-23] MEDS: MAGNESIUM OXIDE 400 MG TABLET PO SCH (09:29)
[2018-11-23] MEDS: FLUTICASONE/VILANTEROL 200-25 MCG/DOSE IH SCH (09:30)
[2018-11-23] MEDS: DOXAZOSIN MESYLATE 1 MG TABLET PO SCH (09:30)
[2018-11-23] MEDS: VERAPAMIL HCL 180 MG TABLET.SA PO SCH ×2 (09:30→23:01)
[2018-11-23] MEDS: CEFTRIAXONE SODIUM 1,000 MG in DEXTROSE 5%-WATER 50 ML IV SCH (09:33)
[2018-11-23] MEDS: MONTELUKAST SODIUM 10 MG TABLET PO SCH (22:59)
[2018-11-24 07:02] LABS: ANION GAP 7 (5-19); BLOOD UREA NITROGEN 8 mg/dL (7-20); CALCIUM 8.5 mg/dL (8.4-10.2); CARBON DIOXIDE 22 mmol/L (22-30); CHLORIDE 107 mmol/L (98-107); GLUCOSE 158 mg/dL (75-110); POTASSIUM 3.9 mmol/L (3.6-5.0); SODIUM 136.1 mmol/L (137-145)
[2018-11-24 09:07] VITALS: BP 148/55
[2018-11-24] MEDS: FLUTICASONE/VILANTEROL 200-25 MCG/DOSE IH SCH (09:34)
[2018-11-24] MEDS: INSULIN LISPRO 100 UNIT/ML 3 ML VIAL SUBCUT SCH (09:34)
[2018-11-24] MEDS: LOSARTAN POTASSIUM 50 MG TABLET PO SCH (09:35)
[2018-11-24] MEDS: CYANOCOBALAMIN (VITAMIN B-12) 1,000 MCG TABLET PO SCH (09:35)
[2018-11-24] MEDS: OMEGA-3 ACID ETHYL ESTERS 1 GM CAPSULE PO SCH (09:35)
[2018-11-24] MEDS: METFORMIN HCL 500 MG TABLET PO SCH (09:35)
[2018-11-24] MEDS: MAGNESIUM OXIDE 400 MG TABLET PO SCH (09:35)
[2018-11-24] MEDS: GLIPIZIDE 5 MG TABLET PO SCH (09:36)
[2018-11-24] MEDS: VERAPAMIL HCL 180 MG TABLET.SA PO SCH (09:36)
[2018-11-24] MEDS: CHOLECALCIFEROL (D3) 1,000 UNIT TABLET PO SCH (09:36)
[2018-11-24] MEDS: DOXAZOSIN MESYLATE 1 MG TABLET PO SCH (09:36)
[2018-11-24] MEDS: METOPROLOL SUCCINATE 25 MG TAB.SR.24H PO SCH (09:36)
--- NOTE | 2018-11-24 13:51 | PDOC DISCHARGE SUMMARY ---
General - Admit/Disc Date/PCP Admission Date/Primary Care Provider: 11/21/18 05:27 AUGUSTIN JOHNS MD Discharge Date: 11/24/18 - Discharge Diagnosis (1) Acute UTI Is this a current diagnosis for this admission?: Yes Summary: cont po ax (2) Lactic acidosis Is this a current diagnosis for this admission?: Yes Summary: resolved (3) Hypertension Is this a current diagnosis for this admission?: Yes Summary: stable (4) Type 2 diabetes mellitus Is this a current diagnosis for this admission?: Yes Summary: stable - Additional Information Discharge Diet: Diabetic Discharge Activity: Activity As Tolerated Prescriptions: Cephalexin Monohydrate [Keflex 500 mg Capsule] 500 mg PO BID #14 capsule Home Medications: Cholecalciferol (Vitamin D3) [Vitamin D] 1,000 unit PO DAILY 04/17/15 Glipizide [Glucotrol 5 mg Tablet] 5 mg PO DAILY 04/17/15 Lisinopril 40 mg PO DAILY 04/17/15 Losartan Potassium 100 mg PO DAILY 04/17/15 Metformin HCl [Glucophage] 1,000 mg PO Q12 04/17/15 Montelukast Sodium [Singulair 10 mg Tablet] 10 mg PO QHS 04/17/15 Reed-3/Dha/Epa/Fish Oil [Fish Oil 1,000 mg Softgel] 1 each PO DAILY 04/17/15 Terazosin HCl 1 mg PO DAILY 04/17/15 Torsemide [Demadex 10 mg Tablet] 10 mg PO DAILY 04/17/15 Tramadol HCl 50 mg PO Q12HP PRN 04/17/15 Albuterol Sulfate [Ventolin Hfa 8 gm Mdi (1 Mdi/ER Disp)] 2 puff IH Q4HP PRN 11/21/18 C,E,Zinc,Copper 11/Sytzv5u/Lut [Ocuvite Adult 50 Plus Softgel] 1 cap PO DAILY 11/21/18 Cyanocobalamin (Vitamin B-12) [Vitamin B12] 2,500 mcg PO DAILY 11/21/18 Glipizide [Glucotrol] 10 mg PO QPM 11/21/18 Magnesium Oxide [Magnesium] 400 mg PO MOWEFRSA@1000 11/21/18 Metoprolol Succinate [Toprol Xl] 25 mg PO DAILY 11/21/18 Verapamil HCl [Verelan] 360 mg PO DAILY 11/21/18 Cephalexin Monohydrate [Keflex 500 mg Capsule] 500 mg PO BID #14 capsule 11/24/18 History of Present Illness History of Present Illness: DELFIN GUNDERSON is a 88 year old female Patient was admitted because of the altered mental status UTI and lactic acidosis and patient was giving IV fluid and IV antibiotics Hospital Course Hospital Course: This is a 88-year-old female with a history of the hypertension hyperlipidemia coronary artery disease history of the type 2 diabetes history of the asthma brought to the emergency department because of the altered mental status and patient was found to be UTI and elevated lactic acid and decided to admit for further evaluation and treatments Patient was started on IV Rocephin patient responds very well Patient otherwise remained stable's Patient having some mild wheezing which patient does not require any treatment patient use the nebulizer at home's Patient is walking the hallway without any oxygen's Patient's desire to go home Discussed with the patient's [id number] who taking care of the patient's on the bedside and send the patient's p.o. antibiotic and follow outpatient In 1 week Physical Exam Vital Signs: Temp Pulse Resp BP Pulse Ox 98.4 F 88 20 148/55 H 94 11/24/18 07:52 11/24/18 07:52 11/24/18 07:52 11/24/18 07:52 11/24/18 07:52 Intake & Output 11/23/18 11/24/18 11/25/18 06:59 06:59 06:59 Intake Total 1725 627 Output Total 1400 100 Balance 325 527 Weight 72.5 kg 71.3 kg General appearance: PRESENT: no acute distress, well-developed, well-nourished Head exam: PRESENT: atraumatic, normocephalic Eye exam: PRESENT: conjunctiva pink, EOMI, PERRLA. ABSENT: scleral icterus Ear exam: PRESENT: normal external ear exam Mouth exam: PRESENT: moist, tongue midline Neck exam: PRESENT: full ROM. ABSENT: carotid bruit, JVD, lymphadenopathy, thyromegaly Respiratory exam: PRESENT: clear to auscultation palmer Cardiovascular exam: PRESENT: RRR. ABSENT: diastolic murmur, rubs, systolic murmur Vascular exam: PRESENT: normal capillary refill GI/Abdominal exam: PRESENT: normal bowel sounds, soft. ABSENT: distended, guar ding, mass, organolmegaly, rebound, tenderness Rectal exam: PRESENT: deferred Extremities exam: ABSENT: pedal edema Musculoskeletal exam: PRESENT: ambulatory Neurological exam: PRESENT: alert, awake, oriented to person, oriented to place, oriented to time, oriented to situation, CN II-XII grossly intact. ABSENT: motor sensory deficit Psychiatric exam: PRESENT: appropriate affect, normal mood. ABSENT: homicidal ideation, suicidal ideation Skin exam: PRESENT: dry, intact, warm. ABSENT: cyanosis, rash Results Laboratory Results: 11/23/18 05:07 11/24/18 06:01 11/24/18 06:01 Sodium 136.1 L Potassium 3.9 Chloride 107 Carbon Dioxide 22 Anion Gap 7 BUN 8 Creatinine 0.44 L Est GFR ( Amer) > 60 Est GFR (Non-Af Amer) > 60 Glucose 158 H Calcium 8.5 Impressions: Chest X-Ray 11/21/18 03:52 IMPRESSION: No acute disease. Qualifiers - * PATIENT BEING DISCHARGED WITH ANY OF THE FOLLOWING DIAGNOSIS: No VTE patient discharged on overlapping Therapy?: Yes Plan Time Spent: Greater than 30 Minutes - Following a 1 week in office
== END 2018-11-24 10:00 | disposition home or self-care (01) | DRG 690 ==
LOC: ER 03:44 → EH 05:27 → 3S 07:15
PROVIDERS: ADMIT Internal Medicine; ATTEND Family Medicine
DX: N39.0 Urinary tract infection, site not specified (principal); E87.2 Acidosis; I10 Essential (primary) hypertension; J45.909 Unspecified asthma, uncomplicated; E11.9 Type 2 diabetes mellitus without complications; M19.90 Unspecified osteoarthritis, unspecified site; E78.5 Hyperlipidemia, unspecified; Z90.49 Acquired absence of other specified parts of digestive tract; I25.10 Atherosclerotic heart disease of native coronary artery without angina pectoris; Z90.710 Acquired absence of both cervix and uterus; Z79.84 Long term (current) use of oral hypoglycemic drugs; Z79.899 Other long term (current) drug therapy; Z88.8 Allergy status to other drugs, medicaments and biological substances; Z88.2 Allergy status to sulfonamides; Z88.1 Allergy status to other antibiotic agents
CPT/HCPCS: 36415; 51701; 71045; 80048; 80053; 81001; 82803; 82962; 83605; 85025; 85610; 87040; 87077; 87086; 87088; 87186; 93005; 93010; 96360; 99285; J0696; J1815; J3490; J7030